=== PATIENT | male | born 1950 | race Caucasian/White ===

== ENCOUNTER 2018-05-22 10:16 | Emergency (ER) | payer OTHER ==
[~2018-05-22] VITALS: Ht 177.8 cm; Wt 113.4 kg
[2018-05-22] MEDS ORDERED: ZYLOPRIM100 M1 (10:28)
[2018-05-22] MEDS ORDERED: FORTAMET1000 MG (10:29)
[2018-05-22] MEDS ORDERED: GLIPIZIDE XL2.5 MG (10:29)
[2018-05-22] MEDS ORDERED: ATORVASTATIN CA20 MG (10:29)
[2018-05-22] MEDS ORDERED: COREG CR10 MG (10:29)
[2018-05-22] MEDS ORDERED: MUCINEX DM ER1 EAC1 PO (15:07)
[2018-05-22] MEDS ORDERED: ZITHROMAX500 MG PO (15:07)
[2018-05-22] MEDS ORDERED: VENTOLIN HFA18 GM IH (15:07)
== END 2018-05-22 15:17 | disposition home or self-care (01) ==
LOC: ER 10:16
DX: J40 Bronchitis, not specified as acute or chronic (principal); J98.01 Acute bronchospasm